=== PATIENT | male | born 1970 | race Caucasian/White ===

== ENCOUNTER 2017-08-30 22:43 | Emergency (ER) | payer OTHER | END 2017-08-31 00:09 | disposition home or self-care (01) | LOC: ER 08-31 00:09 | DX: S83.91XA Sprain of unspecified site of right knee, initial encounter (principal); X58.XXXA Exposure to other specified factors, initial encounter; Y93.89 Activity, other specified; Y92.89 Other specified places as the place of occurrence of the external cause; Y99.8 Other external cause status | CPT/HCPCS: 73562; 99284 ==

== ENCOUNTER 2017-09-06 16:39 | Emergency (ER) | payer SELFPAY, OTHER | END 2017-09-06 17:27 | disposition home or self-care (01) | LOC: ER 16:39 | DX: S89.92XA Unspecified injury of left lower leg, initial encounter (principal); X58.XXXA Exposure to other specified factors, initial encounter; Y93.89 Activity, other specified; Y99.8 Other external cause status; Y92.89 Other specified places as the place of occurrence of the external cause | CPT/HCPCS: 73562; 99284 ==

== ENCOUNTER 2021-07-08 16:40 | Emergency (ER) | payer BC ==
[~2021-07-08] VITALS: Ht 172.7 cm; Wt 106.7 kg
[~2021-07-08 16:40] MED LIST: IBUP-1060 PO; TRAM50TA PO
[2021-07-08] MEDS ORDERED: ONDANSETRON PF 4 MG/2 ML VIAL. IVP ONE (17:30)
[2021-07-08] MEDS ORDERED: IV NORMAL SALINE 1000ML BAG 1,000 ML IV ONE (17:30)
[2021-07-08] MEDS ORDERED: MORPHINE SULFATE 2 MG/ML INJ. IVP ONE (17:30)
[2021-07-08 17:45] LABS: BASO # 0.1 x10^3/uL (0.0-0.2); BASO % 1 % (0-3); EOS # 0.2 x10^3/uL (0.0-0.7); EOS % 2 % (0-3); HEMATOCRIT 45.2 % (39.0-53.0); LYMPH # 1.4 x10^3/uL (1.0-4.8); LYMPH % 19 % (24-48); MEAN CORPUSCULAR HEMOGLOBIN 30 pg (25-35); MEAN CORPUSCULAR HGB CONC 33 g/dL (31-37); MEAN CORPUSCULAR VOLUME 91 fL (79-100); MONO # 0.5 x10^3/uL (0.0-1.1); MONO % 7 % (0-9); NEUT # 5.3 x10^3/uL (1.8-7.7); NEUT % 71 % (31-73); PLATELET COUNT 259 x10^3/uL (140-400); RED BLOOD COUNT 4.95 x10^6/uL (4.30-5.70); RED CELL DISTRIBUTION WIDTH 13.5 % (11.5-14.5); WHITE BLOOD COUNT 7.5 x10^3/uL (4.0-11.0)
--- NOTE | 2021-07-08 17:47 | PHYS DOC ---
Past Medical History Past Medical History: Kidney Stone Past Surgical History: Other Additional Past Surgical Histo: carpal tunnel correction Smoking Status: Never Smoker Alcohol Use: None Drug Use: None General Adult EDM: Chief Complaint: FLANK PAIN HPI: HPI: Patient is a 50-year-old male that presents today with right flank pain. Patient states the pain started this morning and is progressively gotten worse, he was given a hydrocodone tablet by his approximately around 2:00 today and he said that has dulled the pain to a 6 out of 10. Patient states he last voided approximately 9 AM this morning, he said he feels like he needs to have a bowel movement and he strained and he had some blood on the tissue after straining, but he was unable to have a stool. Patient denies chest pain, shortness of air, fever chills, nausea, vomiting, or diarrhea. Patient does mention that he has had over the last 4 days right testicular pain when bending over and moving. Review of Systems: Review of Systems: Constitutional: Denies fever or chills. [] Eyes: Denies change in visual acuity. [] HENT: Denies nasal congestion or sore throat. [] Respiratory: Denies cough or shortness of breath. [] Cardiovascular: Denies chest pain or edema. [] GI: abdominal pain,denies nausea, vomiting, bloody stools or diarrhea. [] : unable to void, right testicular pain Musculoskeletal: Denies back pain or joint pain. [] Integument: Denies rash. [] Neurologic: Denies headache, focal weakness or sensory changes. [] Endocrine: Denies polyuria or polydipsia. [] Lymphatic: Denies swollen glands. [] Psychiatric: Denies depression or anxiety. [] Heart Score: C/O Chest Pain: No Risk Factors: Risk Factors: DM, Current or recent (<one month) smoker, HTN, HLP, family history of CAD, obesity. Risk Scores: Score 0 - 3: 2.5% MACE over next 6 weeks - Discharge Home Score 4 - 6: 20.3% MACE over next 6 weeks - Admit for Clinical Observation Score 7 - 10: 72.7% MACE over next 6 weeks - Early Invasive Strategies Current Medications: Current Medications Medications (Trade) Dose Ordered Sig/Markell Start Time Stop Time Status Last Admin Dose Admin Morphine Sulfate (Morphine Sulfate) 2 mg 1X ONCE 07/08/21 17:30 07/08/21 17:31 DC Ondansetron HCl (Zofran) 4 mg 1X ONCE 07/08/21 17:30 07/08/21 17:31 DC Sodium Chloride 1,000 ml @ 999 mls/hr 1X ONCE 07/08/21 17:30 07/08/21 18:30 Allergies: Allergies: Allergies Coded Allergies Type Severity Reaction Last Updated Verified fentanyl Allergy Severe Anaphylaxis 07/08/21 Yes Physical Exam: PE: Constitutional: Well developed, well nourished, mild distress, non-toxic appearance. [] HENT: Normocephalic, atraumatic, bilateral external ears normal, oropharynx moist, no oral exudates, nose normal. [] Eyes: PERRLA, EOMI, conjunctiva normal, no discharge. [] Neck: Normal range of motion, no tenderness, supple, no stridor. [] Cardiovascular:Heart rate regular rhythm, no murmur [] Lungs & Thorax: Bilateral breath sounds clear to auscultation [] Abdomen: Bowel sounds hyperactive, soft, tenderness lower abdomen, no masses, no pulsatile masses. [] Skin: Warm, dry, no erythema, no rash. [] Back: No tenderness, right CVA tenderness. [] Extremities: No tenderness, no cyanosis, no clubbing, ROM intact, no edema. [] Neurologic: Alert and oriented X 3, normal motor function, normal sensory function, no focal deficits noted. [] Psychologic: Affect normal, judgement normal, mood normal. [] Current Patient Data: Labs: Laboratory Tests Test 07/08/21 17:35 White Blood Count 7.5 x10^3/uL Red Blood Count 4.95 x10^6/uL Hemoglobin 15.0 g/dL Hematocrit 45.2 % Mean Corpuscular Volume 91 fL Mean Corpuscular Hemoglobin 30 pg Mean Corpuscular Hemoglobin Concent 33 g/dL Red Cell Distribution Width 13.5 % Platelet Count 259 x10^3/uL Neutrophils (%) (Auto) 71 % Lymphocytes (%) (Auto) 19 % Monocytes (%) (Auto) 7 % Eosinophils (%) (Auto) 2 % Basophils (%) (Auto) 1 % Neutrophils # (Auto) 5.3 x10^3/uL Lymphocytes # (Auto) 1.4 x10^3/uL Monocytes # (Auto) 0.5 x10^3/uL Eosinophils # (Auto) 0.2 x10^3/uL Basophils # (Auto) 0.1 x10^3/uL Urine Collection Type Unknown Urine Color (Auto) Light yellow Urine Turbidity Hazy Urine pH (Auto) 5.5 Urine Specific [place] 1.013 Urine Protein (Auto) Negative mg/dL Urine Glucose (Auto)(UA) Negative mg/dL Urine Ketones (Auto) Negative mg/dL Urine Blood (Auto) Large Urine Nitrite Negative Urine Bilirubin (Auto) Negative Urine Urobilinogen (Auto) Normal mg/dL Urine Leukocyte Esterase (Auto) Negative Urine RBC >40 /HPF Urine WBC Occ /HPF Urine Bacteria 0 /HPF Urine Hyaline Casts Occasional /HPF Urine Mucus Mod /LPF Sodium Level 142 mmol/L Potassium Level 4.6 mmol/L Chloride Level 104 mmol/L Carbon Dioxide Level 30 mmol/L Anion Gap 8 Blood Urea Nitrogen 13 mg/dL Creatinine 1.1 mg/dL Estimated GFR (Cockcroft-Gault) 71.1 BUN/Creatinine Ratio 12 Glucose Level 106 mg/dL Calcium Level 9.2 mg/dL Total Bilirubin 0.4 mg/dL Aspartate Amino Transf (AST/SGOT) 23 U/L Alanine Aminotransferase (ALT/SGPT) 35 U/L Alkaline Phosphatase 103 U/L Total Protein 8.0 g/dL Albumin 3.9 g/dL Albumin/Globulin Ratio 1.0 Current Medications Medications (Trade) Dose Ordered Sig/Markell Route PRN Reason Start Time Stop Time Status Last Admin Dose Admin Sodium Chloride 1,000 ml @ 999 mls/hr 1X ONCE IV 07/08/21 17:30 07/08/21 18:30 DC 07/08/21 17:41 Morphine Sulfate (Morphine Sulfate) 2 mg 1X ONCE IVP 07/08/21 17:30 07/08/21 17:31 DC 07/08/21 17:40 Ondansetron HCl (Zofran) 4 mg 1X ONCE IVP 07/08/21 17:30 07/08/21 17:31 DC 07/08/21 17:40 Iohexol (Omnipaque 300 Mg/ml) 75 ml 1X ONCE IV 07/08/21 18:15 07/08/21 18:19 DC 07/08/21 18:28 Info (CONTRAST GIVEN -- Rx MONITORING) 1 each PRN DAILY PRN MC SEE COMMENTS 07/08/21 18:30 07/10/21 18:29 Vital Signs: Vital Signs Date Time Temp Pulse Resp B/P (MAP) Pulse Ox O2 Delivery O2 Flow Rate FiO2 07/08/21 18:18 62 16 114/79 (91) 92 Room Air 07/08/21 17:41 78 16 158/91 (113) 97 Room Air 07/08/21 17:40 Room Air 07/08/21 17:12 68 18 154/90 (111) 97 Room Air 07/08/21 16:42 97.8 70 18 161/92 (115) 98 Room Air 97.8 Vital Signs Date Time Temp Pulse Resp B/P (MAP) Pulse Ox O2 Delivery O2 Flow Rate FiO2 07/08/21 16:42 97.8 70 18 161/92 (115) 98 Room Air 97.8 EKG: EKG: [] Radiology/Procedures: Radiology/Procedures: [REASON: RIGHT SIDE ABD PAIN, TESTICLE PAIN, H/O RENAL STONES PROCEDURE: CT ABD PELV W/ IV CONTRST ONLY CT ABDOMEN+PELVIS W History: RIGHT SIDE ABD PAIN, TESTICLE PAIN, H/O RENAL STONES Comparison: None. Technique: After administration of intravenous contrast, helical CT of the abdomen and pelvis was performed from the lung bases through the ischial tuberosities. Coronal and sagittal reconstructions were obtained. 75 mL of Omnipaque 300 were used. One or more of the following dose reduction techniques were utilized: Automated exposure control (AEC), Adjustment of mA and/or kV according to patient size, Use of iterative reconstruction technique such as ASiR, CT scan done according to ALARA and image gently/image wisely Abdomen Findings: The visualized lung bases are clear. Liver measures 19 cc and craniocaudad. Hepatic steatosis. The gallbladder, pancreas, spleen, and bilateral adrenal glands are normal. Symmetric renal enhancement. Delayed excretion of contrast into the right ureter. Mild prominence of the right ureter. 2 mm calculus at the right ureterovesicular junction. The visualized loops of small bowel are normal. The visualized loops of large bowel are normal. There is no evidence of bowel obstruction. Appendix is normal. There is no free fluid. There is no mesenteric or retroperitoneal adenopathy. The abdominal aorta is normal in caliber. Pelvis Findings: Urinary bladder is normal. No pelvic free fluid. There is no pelvic or inguinal adenopathy. There is no acute bony abnormality. IMPRESSION: 1. Prominent right ureter with 2 mm calculus at the right ureterovesicular junction. 2. Hepatomegaly and hepatic steatosis Electronically signed by: Michael Sadler MD (07/08/2021 6:57 PM) [facility] ] Course & Med Decision Making: Course & Med Decision Making Pertinent Labs and Imaging studies reviewed. (See chart for details) [id number] patient was able to void approximately 100 mL of urine. 1909 reviewed radiological laboratory results with patient did inform him that he does have a right sided renal stone. Did inform him we will treat him on an outpatient basis with opioid pain medication and Flomax. Patient is to follow- up with his primary care physician if he continues to have pain on Monday. Patient is encouraged to return to the emergency department should he develop fever, pain is not relieved with opioid pain medication or he stops voiding. Patient verbalized understanding of this and is agreeable with the plan of care. Dragon Disclaimer: Dragmyron Disclaimer: This electronic medical record was generated, in whole or in part, using a voice recognition dictation system. Departure Departure Impression: Primary Impression: Renal calculi Disposition: HOME / SELF CARE / HOMELESS Condition: STABLE Referrals: NO PCP (PCP) JUAN GRAHAM MD Patient Instructions: Diet for Kidney Stones, Kidney Stones Additional Instructions: Flomax take 1 tablet at night for the next 7 days Hydrocodone take 1 to 2 tablets every 6 hours as needed for severe pain, use with caution may cause constipation and drowsiness [id number] Tylenol and/or ibuprofen as needed for pain Increase by mouth fluids Return to the emergency department for increased pain not relieved by the pain medication, inability to void, or development of a fever. Follow-up with your primary care physician or urology in the next 5 to 7 days if your pain is not improving. Scripts Hydrocodone Bit/Acetaminophen (HYDROCODONE-APAP 5-325 ) 1 Tab Tablet 2 TAB PO PRN Q6HRS PRN for PAIN, #20 TAB 0 Refills Prov: JAROD YANES CUT OFF MACHINE UNLOADER 07/08/21 Tamsulosin Hcl (FLOMAX) 0.4 Mg Cap.er.24h 0.4 MG PO HS for 7 Days, #7 TAB Prov: JAROD YANES C[employer] OFF MACHINE UNLOADER 07/08/21 JAROD YANES CUT OFF MACHINE UNLOADER Jul 08, 2021 17:47
[2021-07-08 17:59] LABS: CALCIUM 9.2 mg/dL (8.5-10.1); CREATININE 1.1 mg/dL (0.7-1.3); GFR 71.1; POTASSIUM 4.6 mmol/L (3.5-5.1)
[2021-07-08 18:11] LABS: ALBUMIN 3.9 g/dL (3.4-5.0); TOTAL BILIRUBIN 0.4 mg/dL (0.2-1.0)
[2021-07-08] MEDS ORDERED: IOHEXOL 300 MG/ML 100ML VIAL. IV ONE (18:15)
[2021-07-08 18:16] LABS: BACTERIA,URINE 0 /HPF (0-FEW); HYALINE CASTS, URINE OCCASIONAL /HPF; RBC,URINE >40 /HPF (0-2); WBC,URINE OCC /HPF (0-4)
[2021-07-08 18:18] VITALS: BP 114/79
[2021-07-08] MEDS ORDERED: CONTRAST GIVEN. MC PRN (18:30)
--- NOTE | 2021-07-08 19:00 | RAD ---
CT ABDOMEN+PELVIS W History: RIGHT SIDE ABD PAIN, TESTICLE PAIN, H/O RENAL STONES Comparison: None. Technique: After administration of intravenous contrast, helical CT of the abdomen and pelvis was per formed from the lung bases through the ischial tuberosities. Coronal and sagittal reconstructions wer e obtained. 75 mL of Omnipaque 300 were used. One or more of the following dose reduction techniques were utilized: Automated exposure control (AEC), Adjustment of mA and/or kV according to patient size , Use of iterative reconstruction technique such as ASiR, CT scan done according to ALARA and image g ently/image wisely Abdomen Findings: The visualized lung bases are clear. Liver measures 19 cc and craniocaudad. Hepatic steatosis. The gallbladder, pancreas, spleen, and bila teral adrenal glands are normal. Symmetric renal enhancement. Delayed excretion of contrast into the right ureter. Mild prominence of the right ureter. 2 mm calculus at the right ureterovesicular junction. The visualized loops of small bowel are normal. The visualized loops of large bowel are normal. There is no evidence of bowel obstruction. Appendix is normal. There is no free fluid. There is no mesenteric or retroperitoneal adenopathy. The abdominal aorta is normal in caliber. Pelvis Findings: Urinary bladder is normal. No pelvic free fluid. There is no pelvic or inguinal adenopathy. There is no acute bony abnormality. IMPRESSION: 1. Prominent right ureter with 2 mm calculus at the right ureterovesicular junction. 2. Hepatomegaly and hepatic steatosis Electronically signed by: Michael Sadler MD (07/08/2021 6:57 PM) [facility]
[2021-07-08] MEDS ORDERED: TAMS0.4C97 PO (19:25)
[2021-07-08] MEDS ORDERED: HYDR-2761 PO (19:25)
== END 2021-07-08 19:50 | disposition home or self-care (01) ==
LOC: ER 16:40
DX: N20.0 Calculus of kidney (principal); Z88.4 Allergy status to anesthetic agent
CPT/HCPCS: 36415; 74177; 80053; 81001; 85025; 96361; 96374; 96375; 99285; J2270; J2405; J7030; Q9967